=== PATIENT | female | born 2000 | race Hispanic/Latino ===

== ENCOUNTER → 2024-10-29 | Day surgery (SDC) | payer OTHER ==
[~2024-10-29] MED LIST: FENTANYL CITRATE/PF 100MCG/2 ML INJ ONE; METOCLOPRAMIDE HCL 10 MG/2ML VIAL ONE; PROPOFOL IV EMULSION 10 MG/ML 20 ML VIAL ONE
[2024-10-29] MEDS: LACTATED RINGER'S 1,000 ML ONE (10:33)
[2024-10-29 12:30] VITALS: TEMP 97
[2024-10-29 12:50] VITALS: BP 115/73; PULSE 75; RESP 18; O2SAT 99
== END | disposition home or self-care (01) ==
LOC: OR 10:27
PROVIDERS: ATTEND Internal Medicine Gastroenterology
DX: K29.50 Unspecified chronic gastritis without bleeding (principal); K22.10 Ulcer of esophagus without bleeding; K21.9 Gastro-esophageal reflux disease without esophagitis; K44.9 Diaphragmatic hernia without obstruction or gangrene; J45.909 Unspecified asthma, uncomplicated; Z71.89 Other specified counseling; Z88.6 Allergy status to analgesic agent; Z68.32 Body mass index [BMI] 32.0-32.9, adult; Z71.3 Dietary counseling and surveillance
CPT/HCPCS: 43239; 81025; J2470; J2704; J2765; J3010; J7121